=== PATIENT | female | born 1955 | race Caucasian/White ===

== ENCOUNTER 2021-09-09 10:13 | Outpatient (CLI) | payer MEDICARE, MEDICAID | END 2021-09-09 10:14 | disposition home or self-care (01) | LOC: LABBT 10:13 | PROVIDERS: ATTEND Internal Medicine | DX: R45.1 Restlessness and agitation (principal); R26.89 Other abnormalities of gait and mobility; Z20.822 Contact with and (suspected) exposure to COVID-19 | CPT/HCPCS: 87811 ==

== ENCOUNTER 2021-09-13 12:16 | Day surgery (SDC) | payer MEDICARE, MEDICAID ==
[2021-09-11 14:23] VITALS: BMI 21.2
[2021-09-13] MEDS ORDERED: PROPOFOL 200 MG/20 ML VIAL ONE (14:30)
[2021-09-13] MEDS ORDERED: Ondansetron PF 4 MG/2 ML Vial ONE (14:30)
[2021-09-13] MEDS ORDERED: Dexamethasone 20 MG/5 ML VIAL ONE (14:30)
[2021-09-13] MEDS ORDERED: Lidocaine 1% PF 5 ML VIAL ONE (14:30)
== END 2021-09-13 16:10 | disposition short-term general hospital (02) ==
LOC: MRI 12:16
PROVIDERS: ATTEND Internal Medicine
DX: G93.89 Other specified disorders of brain (principal); R26.89 Other abnormalities of gait and mobility; Z79.84 Long term (current) use of oral hypoglycemic drugs; Z79.899 Other long term (current) drug therapy; Z88.1 Allergy status to other antibiotic agents
CPT/HCPCS: 70551; J1100; J2405; J2704